=== PATIENT | female | born 1995 | race African-American/Black ===

== ENCOUNTER 2025-02-23 01:55 | Inpatient (IN) | payer MEDICARE, SELFPAY ==
[2025-02-22 20:36] VITALS: BP 152/84
--- NOTE | 2025-02-22 21:43 | ED.GENMED ---
History of Present Illness
General
Chief Complaint: Abdominal Symptoms
Source: patient
Time Seen by Provider: 02/22/25 21:32
History of Present Illness
History of Present Illness:
This patient is a 30-year-old female presents emergency department with a gradual onset of abdominal discomfort associated with nausea that started at 4 PM and continuous. She was at work at the time and needed to leave work due to her symptoms.
She denies fever, vomiting, back pain, chest pain, dyspnea, urinary symptoms, vaginal bleeding or discharge. Patient had a cholecystectomy a few months ago that was uneventful. The pain is mostly across her upper abdomen, but also right mid
quadrant. There are no exacerbating relieving factors.
Past History
Past History
ED Past Medical History: None
ED Past Surgical History: Cholecystectomy
Social History
Tobacco: Smoker
Alcohol: Occasional
Drug: None
Personal: Single
Living: with family
Employment: Employed
Phy Exam
Physical Exam
Physical Exam:
GENERAL: Alert , in no apparent distress
EYE: pupils equal and reactive
NECK: Supple, no significant adenopathy.
ENT: o/p clr, mmm.
CARDIAC: Regular rate and rhythm .
LUNGS: Clear breath sounds bilaterally, no acute respiratory distress, no wheezes/rales/rhonchi
ABDOMEN: Soft, upper abd/rmq tenderness, no r/g, no cvat
NEUROLOGICAL: Alert and oriented, no focal neuro deficits
SKIN: Warm and dry, skin intact.
MUSCULOSKELETAL: No edema, well perfused.
PSYCH: Normal and appropriate interaction.
Course
Orders/Labs/Results
Orders:
Orders
02/22/25 21:42
0.9% Sodium Chloride 1000 ml [Nss] 1,000 ml IV BOLUS
Ketorolac [Toradol] 15 mg IV NOW STA
Ondansetron Injectable [Zofran] 4 mg IV NOW STA
Test Result ONCE
02/22/25 22:11
Complete Blood Count/No Diff Urgent
02/22/25 22:42
Beta HCG Quantitative Urgent
Comment: ADD ON
Comprehensive Metabolic Panel Urgent
HCG, Serum Qualitative Screen Urgent
Lipase Urgent
02/22/25 23:07
US Abdomen Complete/Upper Urgent
Comment:
Reason For Exam: upper abd pain
02/22/25 23:17
Add On- LAB Urgent
Tests Added?: hcg quantitative
02/23/25 01:48
Admit/Transfer Patient As Directed
Co-Sign Provider:
Level of Care: Inpatient admission
Assign to:: Medical/Surgical
Physician / Group: Alberto
Diagnosis: pancreatitis
Reason for Hospitalization: suspect gallstone pancreatitis or distal duct obstruction
Expected length of stay greater than two midnights?: Yes
ELOS- Estimated Length of Stay in days: 2
I certify the patient meets the requirements for IP care: Yes
PRN Pain Medication Management As Directed
May give lesser potent ordered pain med per pt: Yes
preference::
Protocol:: Medication orders for pain may be administered in a
manner that supports deferring to patient preference
when the pt is:
- Requesting an ordered lesser potent pain medication.
Least to most potent pain medications are defined
as: acetaminophen < NSAID < tramadol < opioids
(morphine, oxycodone, hydromorphone).
- Requesting a lesser dose of the same medication IF
ORDERED.
- Requesting a less intrusive route of administration
if both routes are prescribed by the provider (PO <
IV).
02/23/25 01:49
Code Status As Directed
Resuscitation Status: Full Code
02/23/25 03:37
0.9% Sodium Chloride 1000 ml [Nss] 1,000 ml IV 150 mls/hr
Acetaminophen [Tylenol] 650 mg PO Q4HPRN PRN
Bisacodyl [Dulcolax] 10 mg RECTAL [id number] PRN
Docusate W/Senna [Senokot-S] 1 tablet PO BIDPRN PRN
HYDROmorphone [Dilaudid] 0.5 mg IV Q4HPRN PRN
Ketorolac [Toradol] 10 mg IV Q6HPRN PRN
Ondansetron Injectable [Zofran] 4 mg IV Q6HPRN PRN
Polyethylene Glycol Powder [Miralax] 17 grams PO DAILYPRN PRN
02/23/25 03:37
Consult Notification Routine
Specialty to Notify: Gastroenterology
Date consulting provider notified: 02/23/25
Time consulting provider notified: 04:00
Notified:: Provider
Comment: depression, , mental health hx
GASTROINTESTINAL CONSULT Routine
Consulting Provider: Jas Kincaid
Was physician already notified: No
Reason for consult: acute pancreatitis/transaminitis s/p lap norma few months ago
Activity As Directed
Activity Level: As Tolerated
Vital Signs As Directed
Frequency: Per unit guidelines
DX Deep Vein Thrombosis Video Routine
02/23/25 Breakfast
NPO
Allow oral meds: Yes
Allow clear liquids: Sips of Clears
02/23/25 07:02
Basic Metabolic Panel IN AM
Complete Blood Count/No Diff IN AM
LFT [Xldne-Ttrw-Lvniosw] IN AM
Magnesium IN AM
02/23/25 18:00
Enoxaparin Sodium [Lovenox] 40 mg SC QPM
Abnormal Lab Results
02/22/25 02/22/25
22:11 22:42
MPV 12.0 H fL
(7.4-10.4)
Sodium 130 L mmol/L
(135-145)
BUN 3 L mg/dl
(7-17)
Total Bilirubin 4.1 H mg/dl
(0.2-1.3)
AST 592 H* U/L
(14-36)
ALT 1013 H* U/L
(0-35)
Alkaline Phosphatase 523 H U/L
(38-126)
Lipase 1168 H* U/L
(23-300)
02/22/25 22:11
02/22/25 22:42
Vital Signs
Initial and Last Documented VS:
Initial Vital Signs
Temp Pulse Resp BP Pulse Ox
98.2 F 77 20 152/84 99
02/22/25 20:36 02/22/25 20:36 02/22/25 20:36 02/22/25 20:36 02/22/25 20:36
Last Documented Vital Signs
Temp Pulse Resp BP Pulse Ox
98.4 F 65 18 118/55 98
02/25/25 07:58 02/25/25 07:58 02/25/25 07:58 02/25/25 07:58 02/25/25 07:58
*Pulse Oximetry
SaO2: 99
Oxygen Mode of Delivery: Room air
Patient hypoxic: no
*Critical Care Note
Total Time (30-74mins, 75-104mins- exclusive of procedures): Not Applicable
Update Note
Update Note:
Patient presents to the Emergency Department with ____abdominal pain and nausea
Number and Complexity of Problems Addressed at the Encounter
� Chronic conditions affecting care:
� Acute Exacerbation and/or Progression of Chronic Illness:
� Differential Diagnosis includes: But not limited to retained stone, pancreatitis, appendicitis, etc. etc.
Amount and/or Complexity of Data to be Reviewed and Analyzed
� I performed an independent evaluation of and my interpretation is:
EKG:
CT:
Xrays:
Laboratory Studies: Normal white blood cell count, elevated lipase consistent with suspected pancreatitis, elevated transaminases, alk phos and total bilirubin. hCG approximately 22,000
Other: Ultrasound mild intrahepatic biliary dilatation and prominent CBD measuring up to 1.1 cm which may be within normal limits in the postcholecystectomy state
� Review of other/old records reveals:
� Clinical information was obtained by an independent historian:
� Prescriptions/Medications Considered but not given:
� Further testing considered but not performed:
Risk of Complications and/or Morbidity or Mortality of Patient Management
� Social determinants of health affecting care:
� Discussion with other providers (PCP, Hospitalists, Consultants, etc):
� Escalation of care including admission/observation vs risk of discharge considered: Patient unexpectedly and was informed of her result here, estimates her last menstrual period was approximately 6 weeks ago. Based on
her beta level I suspect she is relatively early in her . She denies lower abdominal/pelvic pain or bleeding. LFT abnormalities raise the possibility of gallstone pancreatitis. Pain well-controlled here. Patient will be admitted,
n.p.o., IV fluids, pain management, GI consult in AM. Case discussed with Dr. Davila for admission tonight patient nontoxic
ED Attending Note
-
Portions of this chart may have been created with voice recognition software.� Occasional wrong word or��sound alike� substitutions may have occurred due to the inherent limitations of voice recognition software.
Discharge Plan
Departure
Patient Disposition: Admit
Date of Disposition: 02/23/25
Time of Disposition: 00:35
Admit to: Med/Surg
Presentation/result/management discussed w/ accepting MD/DO: Hospitalist
Condition: Fair
Discharge Problem:
Pancreatitis
Interventions
Interventions:
*Risk Screen - Suicide Last Done: 02/23/25 03:15
*General Assessment Last Done: 02/22/25 20:36
*Neglect/Abuse Screening Last Done: 02/22/25 21:53
*ED- Fall Risk Assessment Last Done: 02/22/25 23:00
*ED COVID-19 Vaccine History Last Done: 02/23/25 03:15
*ED Influenza Vaccine History Last Done: 02/22/25 21:53
*Nursing Disposition Last Done: 02/23/25 03:00
MA-Hxitsh-Xiztoglenl Assessment Last Done: 02/22/25 22:24
Discharge Date and Time
Discharge Date/Time: 02/23/25 03:00
[2025-02-22 21:53] VITALS: BMI 42.9
[2025-02-22 21:58] VITALS: BP 116/67
[2025-02-22] MEDS: NSS 1000 IV (22:15)
[2025-02-22] MEDS: ZOFRAN 4 MG IV (22:18)
--- NOTE | 2025-02-22 22:23 | EDRN ---
Pt complained of pain around L ACF #18g IV - IV is positional. IVF stopped and Katherine Garrido RN attempting iv access for CT, toradol and IVF.
--- NOTE | 2025-02-22 22:24 | EDRN ---
Pt developed upper middle and b/l side abdominal pain around [id number] today. Pt did not take anything for pain. Pain constant, crampy and has gotten worse since it started. LMP few weeks ago, pt denies possibility of . Nausea, no
vomiting. Pt denies fever/cough, sob, urinary symptoms, vomiting, constipation, diarrhea, ill contacts. Pt notes burning indigestion type pain. Pt says she ate a rice cake earlier today.
[2025-02-22 22:28] LABS: Hematocrit 37.1 % (37.0-47.0); Hemoglobin 12.5 g/dL (12.0-16.0); Mean Corp Hgb Conc. 33.7 g/dL (33.0-37.0); Mean Corpuscular Volume 87.1 fL (81.0-99.0); Platelet Count 178 10^3/uL (130-400); Red Cell Dist. Width 13.8 % (11.5-14.5)
[2025-02-22] MEDS: TORADOL 15 MG IV (22:44)
--- NOTE | 2025-02-22 22:48 | EDRN ---
Katherine Garrido RN attempted iv access x 1 without success. She was able to redraw sst from L ACF #18g and it flushed well, no pain per pt. IVF started again and toradol given IV without incidence. Pt resting L arm across side table - warm blanket
placed underneath arm for comfort.
[2025-02-22 23:02] LABS: HCG, Serum Qualitative Screen Positive
[2025-02-22 23:06] LABS: AST (SGOT) 592 U/L (14-36); Albumin 4.0 g/dl (3.5-5.0); Alkaline Phosphatase 523 U/L (38-126); Blood Urea Nitrogen 3 mg/dl (7-17); Calcium 9.1 mg/dl (8.4-10.2); Carbon Dioxide 23 mmol/L (22-30); Chloride 104 mmol/L (98-107); Estimated Creatinine Clearance > 125 ml/min; Glucose 89 mg/dl (70-99); Lipase 1168 U/L (23-300); Potassium 3.6 mmol/L (3.5-5.1); Sodium 130 mmol/L (135-145); Total Protein 7.0 g/dl (6.3-8.2); eGFR > 60.00
[2025-02-22 23:16] LABS: ALT (SGPT) 1013 U/L (0-35)
[2025-02-23 00:12] LABS: Beta HCG Quantitative 21894.00 mIU/ml
[2025-02-23 00:40] VITALS: BP 132/69
--- NOTE | 2025-02-23 01:42 | HPS.HSE ---
Family Physician
-
Family Physician: * NONE
Chief Complaint
-
Abdominal pain and nausea
History of Present Illness
This is a 30-year-old with past medical history of gallstone disease present status post cholecystectomy who presents to the emergency department with abdominal pain and nausea.
She reports gradual onset of abdominal discomfort associated with nausea that started at 4 PM and has been persistent since. She denies any vomiting. She denies any associated diarrhea. She denies any back pain. She denies any radiation
otherwise. She reports pain is mostly across her upper abdomen but also right mid quadrant. She has not had any fevers, chills, shortness of breath, dysuria frequency urgency or vaginal discharge. She denies any constipation or abdominal
distention. Patient had a cholecystectomy at [facility] in October for acute cholecystitis. She denied having any additional procedures such as an ERCP at that time. She says that she does drink alcohol occasionally and is known to binge.
She had a birthday recently and drank significantly about 2 days ago. She denies any weight loss medications.
In the ED he was afebrile, blood pressure 108/69, pulse was 68 and she was satting 100% on room air. CBC was complete unremarkable. Electrolytes notable for a sodium of 130 otherwise unremarkable. Pain and creatinine were normal. Total bilirubin
was elevated at 4.1 with elevated AST to 500 ALT to 1000 and lipase to over 1000.
Abdominal ultrasound revealed status post cholecystectomy with mild intrahepatic ductal dilation and prominent CBD measuring up to 1.1 cm.
Medical History
Past Medical History
Past Medical History: Reports Other (Gallstone disease)
Past Surgical History: Reports Cholecystectomy
Social History
Tobacco: Smoker
Alcohol: Binge drinker
Drug: Marijuana
Employment: Employed
Family History
Family History: Not pertinent
Allergies / Home Medications
Allergies reflects when Allergies were last updated in [facility].
Home Medications with original date entered in [facility]
Allergy/Medication List:
Allergies
Allergy/AdvReac Type Severity Reaction Status Date / Time
No Known Allergies Allergy Verified 02/22/25 20:36
Home Medications
No Meds [No Current Medications] 02/22/25
Review of Systems
-
History Source: Patient
Constitutional: Reports No Symptoms
EENT: Reports No Symptoms
Respiratory: Reports No Symptoms
Cardiac: Reports No Symptoms
Abdomen/GI: Reports Abdominal Pain and Nausea
: Reports No Symptoms
Musculoskeletal: Reports No Symptoms
Skin: Reports No Symptoms
Neurological: Reports No Symptoms
Endocrine: Reports No Symptoms
Hematologic/Lymphatic: Reports No Symptoms
Psych: Reports No Symptoms
Physical Exam
Vital Signs
Vital Signs
Temp Pulse Resp BP Pulse Ox
98.3 F 68 14 132/69 100
02/22/25 21:58 02/23/25 00:40 02/23/25 00:40 02/23/25 00:40 02/23/25 00:40
Physical Exam
General: Well Developed, Well Nourished and No Apparent Distress
HEENT: NormoCephalic, Moist mucous membranes and Atraumatic
Respiratory: Clear
Cardiac: S1/S2 and Regular Rhythm; No Murmur or Rub
GI: Soft, Non Tender, Non Distended and Normal Bowel Sounds; No Organomegaly
Rectal: Deferred by Provider
Musculoskeletal: No Clubbing, No Cyanosis and No Edema
Skin: No Rash
Neuro: Nonfocal/grossly intact
Laboratory Results
-
02/22/25 22:11
02/22/25 22:42
Laboratory Results
Total Bilirubin 4.1 mg/dl (0.2-1.3) H 02/22/25 22:42
AST 592 U/L (14-36) H* 02/22/25 22:42
ALT 1013 U/L (0-35) H* 02/22/25 22:42
Alkaline Phosphatase 523 U/L (38-126) H 02/22/25 22:42
Lipase 1168 U/L (23-300) H* 02/22/25 22:42
Data Reviewed
-
Ultrasound: Report Reviewed by me
Lab Data: Labs Reviewed by me
Old Records: Reviewed
Impression/Plan
-
IMPRESSION:
This is a 30-year-old with status post cholecystectomy few months ago presenting to the Emergency Department with epigastric and right upper quadrant abdominal pain and found to have pancreatitis with a lipase of 1000, she also has elevated
bilirubin to 4.1, LFT elevation as well as some dilation of the common bile duct to 1.1 cm. She is afebrile. She has no leukocytosis. She is nontoxic-appearing. Found to have a positive test and her last menstrual period was 6 weeks
ago.
PLAN:
Alcoholic vs Gallstone pancreatitis in patient with status postcholecystectomy, no signs of cholangitis. Recent etoh binging but LFT profile atypical for acute etoh hepatitis.
-Admit to MedSurg
-N.p.o. for now
-IV normal saline
-Pain control and antiemetics
-MRCP in a.m.
-Trend LFTs
-GI consultation
Early noted
DVT prophylaxis�Lovenox subcu
CODE STATUS�full code
[2025-02-23 03:39] VITALS: BP 114/67; BMI 42.8
[2025-02-23] MEDS: NSS 1000 IV ×3 (03:56→17:33)
--- NOTE | 2025-02-23 04:12 | W.PN.UPDATE ---
Update Note
Progress Note Update
Patient verbalized to nursing about depression with history of bipolar disorder untreated. Complicated social history with 3 children and now a new . Overwhelming to her but she verbalized she won't hurt herself although she feels sad.
Agrees to speak with case management department about getting help. Order placed.
[2025-02-23] MEDS: TYLENOL 650 MG PO ×2 (04:41→18:42)
--- NOTE | 2025-02-23 04:47 | PTCARENOTE ---
02/23 - PT admitted to room 2131 from the ED @3:30. PT trasferred from stretcher to bed independently. PT oriented to room, call lemon and plan of care discussed. PT AAOX3 and participated fully in admission questions. PT indicates a hx of depression
and mental health issues with previous hospitalization. PT states current depression and wants to speak with a cyanide case hardener. PT tested positive for in ED. Hospitalist notified and spoke with patient in person. PT denies suicidal ideation.
sow manager consult ordered. Assessment as documented.
[2025-02-23 07:00] VITALS: BP 134/80
[2025-02-23 07:27] LABS: Hematocrit 31.7 % (37.0-47.0); Hemoglobin 10.9 g/dL (12.0-16.0); Mean Corp Hgb Conc. 34.4 g/dL (33.0-37.0); Mean Corpuscular Volume 84.5 fL (81.0-99.0); Platelet Count 155 10^3/uL (130-400); Red Cell Dist. Width 13.5 % (11.5-14.5)
[2025-02-23 08:08] LABS: AST (SGOT) 404 U/L (14-36); Albumin 3.1 g/dl (3.5-5.0); Alkaline Phosphatase 437 U/L (38-126); Blood Urea Nitrogen 3 mg/dl (7-17); Calcium 8.5 mg/dl (8.4-10.2); Carbon Dioxide 23 mmol/L (22-30); Estimated Creatinine Clearance > 125 ml/min; Glucose 90 mg/dl (70-99); Magnesium 1.9 mg/dl (1.6-2.3); Potassium 3.4 mmol/L (3.5-5.1); Sodium 134 mmol/L (135-145); Total Protein 5.6 g/dl (6.3-8.2); eGFR > 60.00
[2025-02-23 08:21] LABS: ALT (SGPT) 739 U/L (0-35); Chloride 108 mmol/L (98-107)
--- NOTE | 2025-02-23 09:49 | PTCARENOTE ---
Patient seen and spoken with Dr. Lin at bedside. Discharge order for 1:1 observation received. Patient denies suicidal ideation, or thoughts of self harm at this time. Patient remains calm, cooperative and in no acute distress at this time.
Will continue to monitor per protocol. Plan of care ongoing.
--- NOTE | 2025-02-23 10:51 | W.PN.HOSP.TC ---
Today's Communication/Plan
-
Assessment / Plan
Assessment / Plan
General: No Apparent Distress, Comfortable and Conversant
HEENT: NormoCephalic, Moist mucous membranes, Atraumatic
Respiratory: Clear and Non Labored Respirations
Cardiac: S1/S2 and Regular Rhythm; No Rub or Gallop
GI: Soft, mild epigastric and right upper quadrant TTP, Non Distended and Normal Bowel Sounds
Musculoskeletal: No Edema, no deformity
Skin: Warm and dry
: NO Hsieh
Neuro: Awake, Alert, Nonfocal/grossly intact
Psych: Calm and cooperative, depressed mood but no suicidal ideation
Ms. Schroeder is a 30-year-old female with medical history of bipolar depression and gallstones (s/p cholecystectomy October 2024) who presented with abdominal pain and nausea. She was found to have elevated LFTs and a mixed cholestatic and
hepatocellular pattern and had a lipase over 1000. Abdominal ultrasound revealed an enlarged CBD of 1.1 cm with mildly dilated intrahepatic ducts. She reports binge drinking alcohol 2 days prior to arrival. She was admitted for further evaluation
and management of pancreatitis with possible choledocholithiasis. Also of note she was found to be which she was previously not aware of.
Pancreatitis:
- Unclear etiology, possibly due to obstruction with gallstone, also possibly due to alcohol use
- Continue aggressive IV fluids and pain control
- Pending GI evaluation and possible MRCP
- Monitor LFTs
- Encourage abstinence from alcohol
:
- Patient was initially overwhelmed by the news that she was
- Will need outpatient [facility] follow-up
Bipolar depression:
- Not on medications
- Currently not suicidal, there was some mention of possible suicidal ideation at the time of admission however this has been further discussed with the patient and she is not having suicidal ideation
- No one-to-one supervision or psychiatric intervention indicated at this time
- Will need outpatient psychiatric follow-up
DVT prophylaxis: Lovenox
CODE STATUS: Full code
Total time spent on today's encounter was 52 minutes
Anticipated Discharge: > 48 hours
Subjective/Interval History
-
Date of Service: February 23, 2025
Patient was seen and examined at bedside this morning. Reports improvement in her epigastric and right upper quadrant pain.
Objective Data
-
Labs:
Laboratory Results
02/22/25 02/23/25
22:42 07:02
WBC 5.8
Hgb 10.9 L
Hct 31.7 L
Plt Count 155
Sodium 130 L 134 L
Potassium 3.6 3.4 L
Chloride 104 108 H
Carbon Dioxide 23 23
BUN 3 L 3 L
Creatinine 0.6 0.6
Glucose 89 90
Calcium 9.1 8.5
Total Bilirubin 4.1 H 3.9 H
AST 592 H* 404 H
ALT 1013 H* 739 H*
Alkaline Phosphatase 523 H 437 H
Vital Signs:
Vital Signs
Temp Pulse Resp BP Pulse Ox
98.6 F 71 20 134/80 99
02/23/25 07:00 02/23/25 07:00 02/23/25 07:00 02/23/25 07:00 02/23/25 07:00
Review of Systems
-
History Source: Patient
All other systems: Reviewed and negative
Abdomen/GI: Reports Abdominal Pain
Physical Exam
-
General: No Apparent Distress
--- NOTE | 2025-02-23 11:24 | CON.GI ---
Consultation
-
Date/Time Consultation Requested: 02/23/25 8am
Date/Time Consultation Performed: 02/23/25 11:25am
Requesting Provider: Luigi Curiel
Performing Provider: Jas Kincaid
Reason for Consultation: Abd pain
Medical History
Chief Complaint / HPI
Chief Complaint: Abd pain
History of Present Illness:
30yo female presents with RUQ pain after eating out and having a beer on her birthday [birth year]. She had recent cholecystectomy in October for GS disease. Denies heavy EtOH. Has had some dark urine and f/c. Also urine hCG positive in ER. She does not
plan on keeping this
Past Medical History
Past Medical History: Other (gallstones)
Past Surgical History: Cholecystectomy
Social History
Tobacco: Smoker
Alcohol: Occasional
Family History
Family History: Reviewed & Not Pertinent
Allergies / Home Medications
Allergy/AdvReac Type Severity Reaction Status Date / Time
No Known Allergies Allergy Verified 02/22/25 20:36
�Medication �Instructions �Recorded
No Meds [No Current Medications] 02/22/25
Review of Systems
-
All other systems: A 12 pt ROS was Negative except as stated above in HPI
Vital Signs
Temp Pulse Resp BP Pulse Ox
98.6 F 71 20 134/80 99
02/23/25 07:00 02/23/25 07:00 02/23/25 07:00 02/23/25 07:00 02/23/25 07:00
Physical Exam
Exam
General: Well Developed and Well Nourished
HEENT: Normocephalic and Atraumatic
Respiratory: Non Labored Respirations
GI: Soft and Tender (mild RUQ tender)
Musculoskeletal: No Edema
Results
WBC 5.8 10^3/uL (4.8-10.8) 02/23/25 07:02
Hgb 10.9 g/dL (12.0-16.0) L 02/23/25 07:02
Hct 31.7 % (37.0-47.0) L 02/23/25 07:02
MCV 84.5 fL (81.0-99.0) 02/23/25 07:02
Plt Count 155 10^3/uL (130-400) 02/23/25 07:02
Sodium 134 mmol/L (135-145) L 02/23/25 07:02
Potassium 3.4 mmol/L (3.5-5.1) L 02/23/25 07:02
Chloride 108 mmol/L (98-107) H 02/23/25 07:02
Carbon Dioxide 23 mmol/L (22-30) 02/23/25 07:02
BUN 3 mg/dl (7-17) L 02/23/25 07:02
Creatinine 0.6 mg/dL (0.6-1.0) 02/23/25 07:02
Calcium 8.5 mg/dl (8.4-10.2) 02/23/25 07:02
Total Bilirubin 3.9 mg/dl (0.2-1.3) H 02/23/25 07:02
AST 404 U/L (14-36) H 02/23/25 07:02
ALT 739 U/L (0-35) H* 02/23/25 07:02
Alkaline Phosphatase 437 U/L (38-126) H 02/23/25 07:02
Lipase 1168 U/L (23-300) H* 02/22/25 22:42
Diagnostic Image Results:
Prior GI Procedures:
EGD:
Colonoscopy:
Assessment / Plan
-
Summary: 30yo female presents with 2 days RUQ pain, f/c. Had recent cholecystectomy in October. TBil 4.1--->3.9, AST 592-->404, ALT 1013-->739 since admission improved. US shows mild prominent CBD 1.1cm and mild IHDD. Urine hCG positive
Impression:
RUQ pain
Abnl LFTs
Dilated CBD 1.1cm
Recent norma in October
Positive urine hCG
Recommendations:
MRCP ordered. I reviewed with pt that MRI is safe in
Trend LFTs
WBC normal, afebrile, abd exam benign. Can hold off on abx
Will follow
-
-
Thank you for consultation and allowing me to participate in the patient's care. Please call the construction person GI physician during the after hours with any questions or concerns.
--- NOTE | 2025-02-23 14:34 | CM ---
CM following re: discharge planning.
Reviewed pt's chart, met with pt.
Pt is a 30 year old female, admitted with primary dx of Pancreatitis.
Pt reports she has been staying in friends [facility], 1 step to enter, has no family around. Pt described herself as independent in all areas [employer]. Pt denies having any mental health problem and pt stated she will be able to return back to her friend's
house.
PCP: pt stated she does not have PCP., declined a list pf PCPO offices stated she will navoigate on her own.
Pharmacy: [facility].
D/C plan: return back to her living arrangements at friend's house.
CM will follow with discharge plan updates as hospitalization progresses
[2025-02-23 15:00] VITALS: BP 145/77
[2025-02-23 23:14] VITALS: BP 118/65
[2025-02-24] MEDS: NSS 1000 IV ×2 (04:30→08:00)
[2025-02-24 08:19] VITALS: BP 121/65
[2025-02-24 10:57] LABS: Hematocrit 36.9 % (37.0-47.0); Hemoglobin 12.0 g/dL (12.0-16.0); Mean Corp Hgb Conc. 32.5 g/dL (33.0-37.0); Mean Corpuscular Volume 92.3 fL (81.0-99.0); Nucleated Red Blood Cells % 0 %; Red Cell Dist. Width 13.9 % (11.5-14.5)
[2025-02-24 11:17] LABS: Platelet Count 120 10^3/uL (130-400)
[2025-02-24 11:19] LABS: ALT (SGPT) 554 U/L (0-35); AST (SGOT) 125 U/L (14-36); Albumin 3.3 g/dl (3.5-5.0); Alkaline Phosphatase 452 U/L (38-126); Blood Urea Nitrogen 5 mg/dl (7-17); Calcium 8.6 mg/dl (8.4-10.2); Carbon Dioxide 12 mmol/L (22-30); Chloride 111 mmol/L (98-107); Estimated Creatinine Clearance > 125 ml/min; Glucose 57 mg/dl (70-99); Potassium 4.2 mmol/L (3.5-5.1); Sodium 133 mmol/L (135-145); Total Protein 6.1 g/dl (6.3-8.2); eGFR > 60.00
[2025-02-24] MEDS: SODIUM BICARBONATE 1150 MEQ IV ×2 (11:49→22:05)
--- NOTE | 2025-02-24 13:08 | W.PN.HOSP.TC ---
Today's Communication/Plan
-
Assessment / Plan
Assessment / Plan
General: No Apparent Distress, Comfortable and Conversant
HEENT: NormoCephalic, Moist mucous membranes, Atraumatic
Respiratory: Clear and Non Labored Respirations
Cardiac: S1/S2 and Regular Rhythm; No Rub or Gallop
GI: Soft, mild epigastric and right upper quadrant TTP, Non Distended and Normal Bowel Sounds
Musculoskeletal: No Edema, no deformity
Skin: Warm and dry
: NO Hsieh
Neuro: Awake, Alert, Nonfocal/grossly intact
Psych: Calm and cooperative, depressed mood but no suicidal ideation
Ms. Schroeder is a 30-year-old female with medical history of bipolar depression and gallstones (s/p cholecystectomy October 2024) who presented with abdominal pain and nausea. She was found to have elevated LFTs and a mixed cholestatic and
hepatocellular pattern and had a lipase over 1000. Abdominal ultrasound revealed an enlarged CBD of 1.1 cm with mildly dilated intrahepatic ducts. She reports binge drinking alcohol 2 days prior to arrival. She was admitted for further evaluation
and management of pancreatitis with possible choledocholithiasis. Also of note she was found to be which she was previously not aware of.
Pancreatitis:
- Unclear etiology, possibly due to obstruction with gallstone, also possibly due to alcohol use
- Continue aggressive IV fluids and pain control
- MRCP obtained, read pending
- Will follow-up with GI regarding potential need for procedural intervention
- Pain and LFTs improving
- Restart diet as able
- Encourage abstinence from alcohol
Nongapped metabolic acidosis:
- In the setting of acute pancreatitis
- Serum bicarb 12 on labs this morning
- Started on IV fluids with bicarb and dextrose
Hypoglycemia:
- In the setting of n.p.o. with acute pancreatitis
- Started on IV fluids with dextrose
- Will continue Accu-Cheks every 6 hours while NPO
- Restart diet as able
:
- Patient was initially overwhelmed by the news that she was
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
Bipolar depression:
- Not on medications
- Currently not suicidal, there was some mention of possible suicidal ideation at the time of admission however this has been further discussed with the patient and she is not having suicidal ideation
- No one-to-one supervision or psychiatric intervention indicated at this time
- Will need outpatient psychiatric follow-up
DVT prophylaxis: Lovenox
CODE STATUS: Full code
Total time spent on today's encounter was 54 minutes
Anticipated Discharge: 24 - 48 hours
Subjective/Interval History
-
Date of Service: February 24, 2025
Patient was seen and examined at bedside this morning. Abdominal pain and LFTs have significantly improved. MRCP obtained, awaiting read.
Objective Data
-
Labs:
Laboratory Results
02/24/25
10:05
WBC 7.5
Hgb 12.0
Hct 36.9 L
Plt Count 120 L D
Sodium 133 L
Potassium 4.2
Chloride 111 H
Carbon Dioxide 12 L*
BUN 5 L
Creatinine 0.6
Glucose 57 L
Calcium 8.6
Total Bilirubin 2.1 H
AST 125 H
ALT 554 H*
Alkaline Phosphatase 452 H
Vital Signs:
Vital Signs
Temp Pulse Resp BP Pulse Ox
97.7 F 70 16 121/65 100
02/24/25 08:19 02/24/25 08:19 02/24/25 08:19 02/24/25 08:19 02/24/25 08:19
I&O
02/23/25 02/24/25 02/25/25
06:59 06:59 06:59
Intake Total 2059
Balance 2059
Review of Systems
-
History Source: Patient
All other systems: Reviewed and negative
Abdomen/GI: Reports Abdominal Pain
Physical Exam
-
General: No Apparent Distress
[2025-02-24 13:23] LABS: Glucose - Point of Care 78 mg/dl (70-99)
--- NOTE | 2025-02-24 13:29 | W.PN.GI.CBS2 ---
Today's Communication / Plan
-
LFTs trending down
Await MRCP reading
Will start clears for now
If MRCP positive, will need ERCP and keep NPO p MN. Would need to discuss ERCP in setting of /radiation exposure
Assessment / Plan
-
Summary: 30yo female presents with 2 days RUQ pain, f/c. Had recent cholecystectomy in October. TBil 4.1--->3.9, AST 592-->404, ALT 1013-->739 since admission improved. US shows mild prominent CBD 1.1cm and mild IHDD. Urine hCG positive
02/22/25 US- Mild IHDD with mild prominence of CBD 11mm, slightly greater than expected post norma
Impression:
RUQ pain
Abnl LFTs
Dilated CBD 1.1cm
Recent norma in October
Positive urine hCG
Subjective
Subjective
Date of Service: February 24, 2025
Abd pain improving. Wants to eat
Objective
Data Reviewed
Laboratory Data:
Laboratory Results
02/24/25 10:05
02/24/25 10:05
Laboratory Results
Magnesium 1.9 mg/dl (1.6-2.3) 02/23/25 07:02
Total Bilirubin 2.1 mg/dl (0.2-1.3) H 02/24/25 10:05
AST 125 U/L (14-36) H 02/24/25 10:05
ALT 554 U/L (0-35) H* 02/24/25 10:05
Alkaline Phosphatase 452 U/L (38-126) H 02/24/25 10:05
Lipase 1168 U/L (23-300) H* 02/22/25 22:42
Vital Signs and I&O:
Vital Signs
Temp Pulse Resp BP Pulse Ox
97.7 F 70 16 121/65 100
02/24/25 08:19 02/24/25 08:19 02/24/25 08:19 02/24/25 08:19 02/24/25 08:19
I&O
02/23/25 02/24/25 02/25/25
06:59 06:59 06:59
Intake Total 2059
Balance 2059
Physical Exam
Physical Exam
GI: Soft and Tender (mild RUQ tender)
[2025-02-24 15:45] VITALS: BP 140/61
[2025-02-24 23:15] VITALS: BP 133/67
[2025-02-25 07:47] LABS: Hematocrit 30.9 % (37.0-47.0); Hemoglobin 10.8 g/dL (12.0-16.0); Mean Corp Hgb Conc. 35.0 g/dL (33.0-37.0); Mean Corpuscular Volume 86.1 fL (81.0-99.0); Nucleated Red Blood Cells % 0 %; Platelet Count 164 10^3/uL (130-400); Red Cell Dist. Width 13.5 % (11.5-14.5)
[2025-02-25 07:58] VITALS: BP 118/55
[2025-02-25 08:10] LABS: ALT (SGPT) 383 U/L (0-35); AST (SGOT) 61 U/L (14-36); Albumin 3.1 g/dl (3.5-5.0); Alkaline Phosphatase 357 U/L (38-126); Blood Urea Nitrogen < 2 mg/dl (7-17); Calcium 8.6 mg/dl (8.4-10.2); Carbon Dioxide 30 mmol/L (22-30); Chloride 104 mmol/L (98-107); Estimated Creatinine Clearance > 125 ml/min; Glucose 105 mg/dl (70-99); HDL Cholesterol 58 mg/dl; LDL Cholesterol, Calculated 97 mg/dl; Potassium 3.2 mmol/L (3.5-5.1); Sodium 133 mmol/L (135-145); Total Protein 5.8 g/dl (6.3-8.2); Very Low Density Lipoprotein 23 mg/dl (0-30); eGFR > 60.00
--- NOTE | 2025-02-25 08:55 | W.PN.GI.CBS2 ---
Today's Communication / Plan
-
MRI negative for CBD stone, perhaps she passed a stone. CBD is less dilated on MRI compared with US on admission
Advance to low fat diet
OK for d/c from GI standpoint
I told pt to return to ER if symptoms recur
Will sign off
Assessment / Plan
-
Summary: 30yo female presents with 2 days RUQ pain, f/c. Had recent cholecystectomy in October. TBil 4.1--->3.9, AST 592-->404, ALT 1013-->739 since admission improved. US shows mild prominent CBD 1.1cm and mild IHDD. Urine hCG positive
02/22/25 US- Mild IHDD with mild prominence of CBD 11mm, slightly greater than expected post norma
Impression:
RUQ pain
Abnl LFTs
Dilated CBD 1.1cm
Recent norma in October
Positive urine hCG
Subjective
Subjective
Date of Service: February 25, 2025
Feels well. Abd pain resolved. Tolerated clears
Objective
Data Reviewed
Laboratory Data:
Laboratory Results
02/25/25 06:58
02/25/25 06:58
Laboratory Results
Magnesium 1.9 mg/dl (1.6-2.3) 02/23/25 07:02
Total Bilirubin 1.6 mg/dl (0.2-1.3) H 02/25/25 06:58
AST 61 U/L (14-36) H 02/25/25 06:58
ALT 383 U/L (0-35) H 02/25/25 06:58
Alkaline Phosphatase 357 U/L (38-126) H 02/25/25 06:58
Lipase 1168 U/L (23-300) H* 02/22/25 22:42
Vital Signs and I&O:
Vital Signs
Temp Pulse Resp BP Pulse Ox
98.4 F 65 18 118/55 98
02/25/25 07:58 02/25/25 07:58 02/25/25 07:58 02/25/25 07:58 02/25/25 07:58
I&O
02/24/25 02/25/25 02/26/25
06:59 06:59 06:59
Intake Total 2059 720 / 720
Balance 2059 720 / 720
Physical Exam
Physical Exam
GI: Soft, Non Distended and Non Tender
[2025-02-25] MEDS: LR 1000 IV (09:31)
[2025-02-25] MEDS: KCL 270 MEQ IV (09:31)
--- NOTE | 2025-02-25 09:49 | W.PN.HOSP.TC ---
Today's Communication/Plan
-
dc
Assessment / Plan
Assessment / Plan
30yo F with no PMHx came with abdominal pain and found acute pancreatitis. Patient had alcohol intake a day before presentation. Abdominal US concerning for dilated CBD to 11mm, which is larger then expected for patient s/p cholecystectomy. MRCP
done which in its turn showed CBD of 6mm. As pain resolved, GI contributed pancreatitis to passed stone. Patient tolerated food and pain isresolved. Received repletion of potassium. Also found appr 6 weeks .
A/P:
#Acute alcoholic pancreatitis
#DIlated CBD
#Hepatic steatosis
#Elevated bilirubin
#Transaminitis
#Elevated alk.phos
Low fat diet
IVF
Pain mgmt
advance diet
s/p MRCP: no acute fidings
GI follows
LFT improving - cont to trend with PCP upon d/c
Ca and triglycerides WNL
#Metabolic acidosis
#Hypokalemia
replete
s/p bicarb fluid
Acidosis resolved
#Fasting hypoglycemia
s/p D5W
not DM not on insulin
#Bipolar d/o
not depressed, no SI
#
outpatient OB
DVT ppx lovenox
Full code
I have spent at least 38min reviewing chart, test results, communication with consultants and providing direct patient care
Anticipated Discharge: Today
Subjective/Interval History
-
Date of Service: February 25, 2025
Objective Data
-
Labs:
Laboratory Results
02/25/25
06:58
WBC 5.7
Hgb 10.8 L
Hct 30.9 L
Plt Count 164 D
Sodium 133 L
Potassium 3.2 L
Chloride 104
Carbon Dioxide 30
BUN < 2 L
Creatinine 0.6
Glucose 105 H
Calcium 8.6
Total Bilirubin 1.6 H
AST 61 H
ALT 383 H
Alkaline Phosphatase 357 H
Vital Signs:
Vital Signs
Temp Pulse Resp BP Pulse Ox
98.4 F 65 18 118/55 98
02/25/25 07:58 02/25/25 07:58 02/25/25 07:58 02/25/25 07:58 02/25/25 07:58
I&O
02/24/25 02/25/25 02/26/25
06:59 06:59 06:59
Intake Total 2059 720 / 720
Balance 2059 720 / 720
Review of Systems
-
History Source: Patient
All other systems: Reviewed and negative
Physical Exam
-
General: No Apparent Distress
GI: Soft, Nontender and Nondistended
Neuro: Awake, Alert, Oriented and AO x 3
Psych: Calm; Negative Depressed or Suicidal
--- NOTE | 2025-02-25 11:06 | W.DCSUMMARY ---
Addendum entered and electronically signed by Yobany Rodgers MD 02/25/25 15:53:
#Morbid obesity with BMI 42.8
Original Note:
Discharge Summary
Discharge Data
Date of Admission: 02/23/25
Date of Discharge: 02/25/25
-
Pending Results: No
Hospital Course
30yo F with no PMHx came with abdominal pain and found acute pancreatitis. Patient had alcohol intake a day before presentation. Abdominal US concerning for dilated CBD to 11mm, which is larger then expected for patient s/p cholecystectomy. MRCP
done which in its turn showed CBD of 6mm. As pain resolved, GI contributed pancreatitis to passed stone. Patient tolerated food and pain isresolved. Received repletion of potassium. Also found appr 6 weeks .
I have spent at least 38min reviewing chart, test results, communication with consultants and providing direct patient care
Patient was managed for:
#Acute alcoholic pancreatitis
#DIlated CBD
#Hepatic steatosis
#Elevated bilirubin
#Transaminitis
#Elevated alk.phos
#Metabolic acidosis
#Hypokalemia
#Fasting hypoglycemia
#Bipolar d/o
#
Discharge Plan
-
Patient Disposition: Home (Routine Discharge)
Discharge Diagnosis/Procedures: acute pancreatitis
Diet: Low Fat
Referrals:
NONE,* [Family Provider, Internal Medicine]
Prescriptions:
New
PNV 67-iron ps-folate no.1-dha 29 mg iron- 1 mg-200 mg capsule
1 cap PO DAILY Qty: 30 0RF
Discharge Orders:
Discharge Patient (As Directed); Ordered 02/25/25
Ordered By: Yobany Rodgers
Discharge Date and Time
Print Language: SETSWANA
--- NOTE | 2025-02-25 11:33 | CM ---
CM reviewed chart and noted dc order
Bedside meeting with pt- no dc needs noted
Transportation discussed and declined WC van due to costs
Pt will arrange for her own Lyft
Discharge Disposition- home no needs, Lyft transport
--- NOTE | 2025-02-25 15:45 | PN.CDI ---
CDI
- -
CDI:
Physician Documentation Request
Admit Date: 02/23/25 01:55
Dear Doctor,
Please review the following and provide your response in the progress notes.
Clinical Indicators:
Height: 5' 7'
Weight: 273 lbs
BMI:42.8
If possible, please provide an associated diagnosis related to the abnormal BMI, such as:
BMI > or = to 40
Overweight
Obesity:
Due to excess calories
Drug induced
Due to other cause
Severe or morbid obesity:
With alveolar hypoventilation (Obesity hypoventilation syndrome)
Without alveolar hypoventilation
BMI is not significant
Other
Use of terms such as suspected, likely, concern for, or probable (associated with a specific diagnosis that is being evaluated, monitored, or treated as if it exists) are acceptable and can be coded in the inpatient setting, when documented at the
time of discharge.
Thank you,
Nuvia Gregory RN, BSN
CDI Specialist
[facility]
Please use your independent medical judgment in providing your response.
== END 2025-02-25 14:28 | disposition home or self-care (01) | DRG 439 ==
LOC: 2 NORTH 01:55
PROVIDERS: Internal Medicine; ADMITTING PHYSICIAN Internal Medicine; ATTENDING PHYSICIAN Internal Medicine; CONSULT PHYSICIAN Specialist; EMERGENCY PHYSICIAN Emergency Medicine
DX: K85.20 Alcohol induced acute pancreatitis without necrosis or infection (principal); E87.20 Acidosis, unspecified; O26.611 Liver and biliary tract disorders in pregnancy, first trimester; Z68.41 Body mass index [BMI] 40.0-44.9, adult; K76.0 Fatty (change of) liver, not elsewhere classified; E87.6 Hypokalemia; O99.281 Endocrine, nutritional and metabolic diseases complicating pregnancy, first trimester; F31.9 Bipolar disorder, unspecified; O99.341 Other mental disorders complicating pregnancy, first trimester; Z90.49 Acquired absence of other specified parts of digestive tract; F17.200 Nicotine dependence, unspecified, uncomplicated; O99.331 Smoking (tobacco) complicating pregnancy, first trimester; E66.01 Morbid (severe) obesity due to excess calories; O99.211 Obesity complicating pregnancy, first trimester; Z3A.01 Less than 8 weeks gestation of pregnancy
CPT/HCPCS: 74181; 76700; 80048; 80053; 80061; 80076; 82248; 82962; 83690; 83735; 84702; 84703; 85025; 85027; 96361; 96374; 96375; 99285

== ENCOUNTER 2025-04-25 13:33 | Emergency (ER) | payer MEDICARE, SELFPAY ==
[2025-04-25 13:35] VITALS: BP 141/97
--- NOTE | 2025-04-25 14:50 | ED.GENMED ---
History of Present Illness
General
Chief Complaint: Skin Problem
Source: patient
Exam Limitations: none
Time Seen by Provider: 04/25/25 13:57
Nursing documentation reviewed up to this point in time: agreed with
History of Present Illness
History of Present Illness:
The patient is a pleasant 30-year-old female who reports for 2 weeks she has had an itchy rash on her back, chest and arms. Patient reports initially appeared as hives but now they look like small bumps everywhere. Patient denies difficulty
breathing and swallowing. Patient denies any swelling of her lips or tongue. Patient reports that she had an elective about 4 weeks ago and took medication for this, but otherwise, has not had any new medications. Patient denies fever.
Patient does report mild headache but denies sore throat.
Past History
Past History
ED Past Medical History: Psychiatric
ED Past Surgical History: Cholecystectomy
Social History
Tobacco: Smoker
Alcohol: Occasional
Drug: None
Personal: Single
Living: with family
Employment: Employed
Family History
Family History: Other
Review of Systems
Review of Systems
Allergies reviewed?: Yes
All Other Systems: ROS reviewed and negative except as documented in HPI and ROS
Constitutional: Reports no symptoms
EENT: Reports no symptoms
Respiratory: Reports no symptoms
Cardiac: Reports no symptoms
ABD/GI: Reports no symptoms
: Reports no symptoms
Musculoskeletal: Reports no symptoms
Skin: Reports itching and rash
Neurological: Reports headache
Endocrine: Reports no symptoms
Hematologic/Lymphatic: Reports no symptoms
Psychiatric: Reports no symptoms
Phy Exam
Physical Exam
Physical Exam:
Physical Exam
General: no apparent distress, not acutely ill
Neck: supple. No uvular swelling. No swelling of lips or tongue
Heart: s1/s2 regular rate and rhythm, no murmur. equal radial pulses.
Lungs: no acute respiratory distress. clear bilaterally
Abdomen: normal bowel sounds. not tender. no CVAT
Neuro: alert and oriented. no focal neurological deficits
Skin: Diffuse papular rash on bilateral upper extremities, chest, and back. No sign of hives. Looks like a drug rash
Psychiatric: well kept. interactive and cooperative
Extremities: no edema. no calf tenderness. negative homans. good distal pulses
Course
Orders/Labs/Results
Orders:
Orders
04/25/25 14:35
Prednisone [Deltasone] 40 mg PO NOW STA
Vital Signs
Initial and Last Documented VS:
Initial Vital Signs
Temp Pulse Resp BP Pulse Ox
98.7 F 73 18 141/97 100
04/25/25 13:35 04/25/25 13:35 04/25/25 13:35 04/25/25 13:35 04/25/25 13:35
Last Documented Vital Signs
Temp Pulse Resp BP Pulse Ox
98.7 F 73 18 141/97 100
04/25/25 13:35 04/25/25 13:35 04/25/25 13:35 04/25/25 13:35 04/25/25 14:50
MDM/Problems Addressed
Differential Diagnosis Includes:
Acute drug rash, acute urticaria
MDM/Problems Addressed:
Presents with acute rash and itching
Acute Exacerbation and/or Progression of Chronic Illness:
Patient is calm and shows no signs of anxiety
Acute Exacerbation and/or Progression of Chronic Illness: Psychiatric illness
*Pulse Oximetry
SaO2: 100
Oxygen Mode of Delivery: Room air
Patient hypoxic: no
*EKG
Interpreted by ED Provider?: NA
*Trekking Guide Interpretation
Rate: Trekking Guide- N/A
*Critical Care Note
Total Time (30-74mins, 75-104mins- exclusive of procedures): Not Applicable
Data Reviewed
Source: patient
Patient Management
Social determinants of health affecting care: Living situation and Strong social support
Escalation/DeEscalation of care consider admission/obs:
Patient's rash does not look petechial in nature. There is no sign of airway compromise or angioedema
ED Attending Note
-
Portions of this chart may have been created with voice recognition software.� Occasional wrong word or��sound alike� substitutions may have occurred due to the inherent limitations of voice recognition software.
Discharge Plan
Departure
Patient Disposition: Home (Routine Discharge)
Date of Disposition: 04/25/25
Time of Disposition: 14:36
Patient with high blood pressure during this ER visit?: Yes
Condition: Good
Covid-19: Not Applicable
Discharge Problem:
Allergic drug rash
Instructions: Allergic reaction - ED (DC), Skin rash - ED (DC), BLOOD PRESSURE
Prescriptions:
New
prednisone 10 mg tablet
10 mg PO DIRECTED Qty: 16 0RF
Rx Instructions:
Take 40 mg on day 1
Take 30 mg on day 2 and 3
Take 20 mg on day 4 and 5
Take 10 mg on day 6 and 7
No Action
PNV 67-iron ps-folate no.1-dha 29 mg iron- 1 mg-200 mg capsule
1 cap PO DAILY Qty: 30 0RF
Referrals:
UNKNOWN - PT DOES,NOT KNOW [Family Provider]
Activity Restrictions/Additional Instructions:
Take 25 mg of Benadryl every 8 hours as needed for itching. If the itching is severe, you can take up to 50 mg of Benadryl every [address] or drink alcohol while using Benadryl.
Please take the prednisone once a day in the morning.
Please follow-up with your doctor in 5 to 7 days if the rash is not greatly improved
Interventions
Interventions:
*General Assessment Last Done: 04/25/25 13:35
*Neglect/Abuse Screening Last Done: 04/25/25 13:35
*Risk Screen - Suicide (C-SSRS) Last Done: 04/25/25 14:11
*Nursing Disposition Last Done: 04/25/25 15:18
ED-Skin Assessment Last Done: 04/25/25 14:11
Discharge Date and Time
Discharge Date/Time: 04/25/25 15:19
Print Language: URUGUAYAN
[2025-04-25] MEDS: DELTASONE 40 MG PO (15:09)
== END 2025-04-25 15:19 | disposition home or self-care (01) ==
LOC: EMR 13:33
PROVIDERS: EMERGENCY PHYSICIAN Emergency Medicine
DX: L27.0 Generalized skin eruption due to drugs and medicaments taken internally (principal); F17.200 Nicotine dependence, unspecified, uncomplicated
CPT/HCPCS: 99283